=== PATIENT | female | born 1965 | race Caucasian/White ===

== ENCOUNTER 2016-07-01 17:21 | Emergency (ER) | payer OTHER ==
[~2016-07-01] VITALS: Ht 177.8 cm; Wt 63.6 kg
[~2016-07-01 17:21] MED LIST: SERT20OR PO; SIMV20TA4 PO
[2016-07-01 17:27] VITALS: BP 146/97; PULSE 115; RESP 20; O2SAT 95
--- NOTE | 2016-07-01 18:14 | ED.REPORT ---
HPI-General Illness Date of Service Jul 01, 2016 ED Provider: Bolivar Gates MD The patient is a 51 year old female with history of hyperlipidemia, alcohol abuse, and depression, who presents to the emergency department requesting help with her recent relapse. The patient was sober for __ months and relapsed 12 days ago. She is now complaining of nausea. She has history of alcohol withdrawal seizures. Nursing Notes Stated Complaint: MENTAL HEALTH Chief Complaint: Substance Abuse Nursing Notes Reviewed: Yes Allergies: Coded Allergies: morphine (Verified Allergy, Unknown, 07/01/16) Scheduled Sertraline HCl (Zoloft) 20 Mg/1 Ml Oral.conc 50 MG PO DAILY Simvastatin (Simvastatin) 20 Mg Tablet 20 MG PO HS General Time Seen by MD: 18:13 Chief Complaint Other Hx Obtained From: Patient Arrived By: Walk-in Sudden in Onset?: Yes Onset Occurred: Yesterday Symptom Duration: Since onset Severity: Current: Moderate Severity: Maximum: Moderate Recent Healthcare: No recent doctor visit, No recent hospitalization Similar Sx Previous: Yes Past Medical History Past Medical History Hyperlipidemia Alcohol withdrawal (sz x1 in years past per EMR) Depression Hx of cervical cancer Past Surgical History LEEP, twice Tubal ligation Family History Noncontributory Smoking History Current Every Day Smoker Social History Alcohol Use: >5 per day Drug Use: Denies drug use Other Social History: , Local resident Occupation Unemployed Ambulatory Status Independent Review of Systems Complete sys rev & neg: except as marked. Physical Exam Vital Signs Vital Signs Date Time Temp Pulse Resp B/P Pulse Ox O2 Delivery O2 Flow Rate FiO2 07/01/16 17:27 36.6 115 20 146/97 95 Room Air Initial VS: Reviewed Re-Eval/Medical Decision Source of Hx: Old records Counseled Regarding: Diagnosis, Lab results Discharge & Departure Discharge Condition All VS Reviewed: Yes Condition: Stable Referrals: Jose Baird (PCP) Scribe Attestation Portions of this note were transcribed by Bijal Donaldson. I, Dr. Gates personally performed the history, physical exam and medical decision-making; I reviewed and confirmed the accuracy of the information in the transcribed note. Signed by: Kelli Clancy, 07/01/2016 at [Time]. copies to: Jose Baird Beck O MD Jul 01, 2016 18:14 [place] Jul 01, 2016 18:36
== END 2016-07-01 19:00 | disposition left against medical advice (07) ==
LOC: SED 17:21
DX: Z53.21 Procedure and treatment not carried out due to patient leaving prior to being seen by health care provider (principal)

== ENCOUNTER 2016-08-04 09:57 | Inpatient (IN) | payer OTHER ==
[~2016-08-04] VITALS: Ht 177.8 cm; Wt 66.7 kg
[2016-08-04] MEDS ORDERED: 0.9% Sodium Chloride 1,000 ML IV ONE ×2 (10:03→14:30)
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
[2016-08-04 10:04] VITALS: BP 138/92; PULSE 74; RESP 16; O2SAT 100
[2016-08-04] MEDS ORDERED: Ondansetron 2 mg/mL 2 mL Inj IV PRN (10:05)
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
[2016-08-04 12:00] LABS: Mean Corpuscular Hemoglobin 30.9 pg (27.0-35.0); Mean Corpuscular Volume 93.3 fL (81-100)
[2016-08-04 12:01] LABS: BASOPHILS % (AUTO) 0.5 % (0-3); EOSINOPHILS % (AUTO) 0.6 % (0-5); MONOCYTES % (AUTO) 4.5 % (4-12); NEUTROPHILS % (AUTO) 69.1 % (40-74); Platelet Count 180 bil/L (150-400)
[2016-08-04 12:25] LABS: Magnesium 2.3 mg/dL (1.6-2.6)
[2016-08-04 13:55] VITALS: BP 105/56; PULSE 123; RESP 21; O2SAT 96
[2016-08-04] MEDS ORDERED: Alum-Mag Hydrox-Simeth 30 mL Suspension PO PRN (16:55)
[2016-08-04 17:25] LABS: APPEARANCE,URINE CLEAR (CLEAR,HAZY); COLOR,URINE YELLOW (YELLOW); OCCULT BLOOD,URINE TRACE (NEGATIVE); UROBILINOGEN,URINE NORMAL (NORMAL)
[2016-08-04 17:26] LABS: YEAST,URINE MODERATE (NONE SEEN)
[2016-08-04 17:39] VITALS: BP 118/63; PULSE 122; RESP 22; O2SAT 95
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
[2016-08-04 18:43] VITALS: PULSE 122
[2016-08-04] MEDS ORDERED: Thiamine Inj 100 MG, Folic Acid Inj 1 MG, Magnesium Sulfate 50% Inj 2 GM, Multivitamins... IV ONE ×5 (19:20)
[2016-08-04] MEDS: Ondansetron 2 mg/mL 2 mL Inj IVPUSH PRN (19:41)
[2016-08-04 22:18] LABS: Creatine Kinase 152 U/L (21-215)
[2016-08-04 22:22] VITALS: BP 130/78; PULSE 96; RESP 18; O2SAT 95
[2016-08-05] VITALS (8 sets, daily range): BP systolic 115–145; BP diastolic 73–89; PULSE 80–108; RESP 16–20; O2SAT 95–100
[2016-08-05] MEDS: Ondansetron 2 mg/mL 2 mL Inj IVPUSH PRN ×2 (00:14→19:25)
[2016-08-05 04:04] LABS: Creatine Kinase 141 U/L (21-215)
[2016-08-05 06:48] LABS: Mean Corpuscular Hemoglobin 31.8 pg (27.0-35.0); Mean Corpuscular Volume 94.5 fL (81-100); NEUTROPHILS % (AUTO) 59.8 % (40-74); Platelet Count 128 bil/L (150-400)
[2016-08-05 06:49] LABS: BASOPHILS % (AUTO) 0.4 % (0-3); EOSINOPHILS % (AUTO) 0.9 % (0-5); MONOCYTES % (AUTO) 8.6 % (4-12)
[2016-08-05] MEDS ORDERED: Sertraline 20 mg/mL Liq PO SCH (08:30)
[2016-08-05] MEDS ORDERED: Multivit-Miner-Folic Acid-Iron Tablet PO SCH (08:30)
[2016-08-05 10:32] LABS: Creatine Kinase 147 U/L (21-215)
[2016-08-05] MEDS ORDERED: Alum-Mag Hydrox-Simeth 30 mL Suspension PO PRN (11:20)
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
[2016-08-05] MEDS ORDERED: Magnesium Hydroxide 10 mL Oral Concentration PO PRN (17:40)
[2016-08-05] MEDS: Ketorolac 15 mg/mL Inj IVPUSH PRN (21:42)
[2016-08-06] VITALS (8 sets, daily range): BP systolic 92–156; BP diastolic 61–107; PULSE 72–99; RESP 14–21; O2SAT 94–98
[2016-08-06] MEDS: Ondansetron 2 mg/mL 2 mL Inj IVPUSH PRN ×3 (01:50→18:17)
[2016-08-06] MEDS: Ketorolac 15 mg/mL Inj IVPUSH PRN (03:26)
[2016-08-06] MEDS: Dexmedetomidine 400 mCg/100 mL 400 MCG in IV Premix 1 EACH IV SCH ×2 (04:40→19:53)
[2016-08-06 05:16] LABS: Mean Corpuscular Hemoglobin 31.4 pg (27.0-35.0); Mean Corpuscular Volume 95.3 fL (81-100)
[2016-08-06 05:44] LABS: Magnesium 2.1 mg/dL (1.6-2.6); Phosphorus 3.1 mg/dL (2.5-4.9)
[2016-08-06] MEDS: 0.9% Sodium Chloride 1,000 ML IV SCH ×2 (06:07→18:20)
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
[2016-08-06] MEDS: cefTRIAXone Inj 1,000 MG in Dextrose 5% Minibag Plus 50 ML IV SCH (14:53)
[2016-08-07] VITALS (7 sets, daily range): BP systolic 95–130; BP diastolic 72–83; PULSE 65–85; RESP 12–18; O2SAT 95–100
[2016-08-07] MEDS: 0.9% Sodium Chloride 1,000 ML IV SCH ×3 (03:12→15:23)
[2016-08-07 03:22] LABS: BASOPHILS % (AUTO) 0.4 % (0-3); EOSINOPHILS % (AUTO) 2.4 % (0-5); MONOCYTES % (AUTO) 7.1 % (4-12); Mean Corpuscular Hemoglobin 32.1 pg (27.0-35.0); Mean Corpuscular Volume 95.4 fL (81-100); NEUTROPHILS % (AUTO) 57.6 % (40-74); Platelet Count 110 bil/L (150-400)
[2016-08-07] MEDS ORDERED: Lidocaine 1% 50 mL Inj NERVEBLOCK ONE (08:45)
[2016-08-07] MEDS: Dexmedetomidine 400 mCg/100 mL 400 MCG in IV Premix 1 EACH IV SCH (10:00)
[2016-08-07] MEDS: cefTRIAXone Inj 1,000 MG in Dextrose 5% Minibag Plus 50 ML IV SCH (12:19)
[2016-08-07] MEDS: Ondansetron 2 mg/mL 2 mL Inj IVPUSH PRN (16:04)
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
[2016-08-08] VITALS (7 sets, daily range): BP systolic 98–167; BP diastolic 68–100; PULSE 52–100; RESP 12–20; O2SAT 96–100
[2016-08-08] MEDS: 0.9% Sodium Chloride 1,000 ML IV SCH ×2 (00:50→11:04)
[2016-08-08] MEDS: Dexmedetomidine 400 mCg/100 mL 400 MCG in IV Premix 1 EACH IV SCH (00:51)
[2016-08-08] MEDS: Ketorolac 15 mg/mL Inj IVPUSH PRN ×3 (00:56→23:21)
[2016-08-08 03:39] LABS: BASOPHILS % (AUTO) 0.4 % (0-3); EOSINOPHILS % (AUTO) 2.4 % (0-5); MONOCYTES % (AUTO) 10.4 % (4-12); Mean Corpuscular Hemoglobin 31.6 pg (27.0-35.0); Mean Corpuscular Volume 93.3 fL (81-100); NEUTROPHILS % (AUTO) 51.2 % (40-74); Platelet Count 94 bil/L (150-400)
[2016-08-08] MEDS: cefTRIAXone Inj 1,000 MG in Dextrose 5% Minibag Plus 50 ML IV SCH (12:16)
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
[2016-08-08] MEDS: Ondansetron 2 mg/mL 2 mL Inj IVPUSH PRN ×2 (16:17→20:37)
[2016-08-09] MEDS: Ondansetron 2 mg/mL 2 mL Inj IVPUSH PRN (02:14)
[2016-08-09] MEDS: 0.9% Sodium Chloride 1,000 ML IV SCH (03:45)
[2016-08-09 04:53] VITALS: BP 118/83; PULSE 84; RESP 16; O2SAT 100
[2016-08-09] MEDS: Ketorolac 15 mg/mL Inj IVPUSH PRN (05:25)
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
== END 2016-08-09 09:34 | disposition left against medical advice (07) | DRG 770 ==
LOC: EDBD 09:57 → SED 09:57 → EDUNIT# 09:57 → MPC 16:37 → CCU 08-06 01:02 → PCC 08-06 01:41 → CCU 08-06 04:30 → MPC 08-08 14:49
PROVIDERS: ADMIT Family Medicine; ATTEND Family Medicine
DX: F10.239 Alcohol dependence with withdrawal, unspecified (principal); D69.6 Thrombocytopenia, unspecified; N39.0 Urinary tract infection, site not specified; B96.20 Unspecified Escherichia coli [E. coli] as the cause of diseases classified elsewhere; F32.9 Major depressive disorder, single episode, unspecified; E78.5 Hyperlipidemia, unspecified; F17.210 Nicotine dependence, cigarettes, uncomplicated; R00.0 Tachycardia, unspecified; Y90.8 Blood alcohol level of 240 mg/100 ml or more